=== PATIENT | male | born 1940 | race Caucasian/White ===

== ENCOUNTER 2016-12-11 10:01 | Emergency (ER) | payer OTHER, BC ==
[~2016-12-11] VITALS: Ht 175.3 cm; Wt 95.0 kg
[~2016-12-11 10:01] MED LIST: ALLOPURINOL100 MG PO; AMLODIPINE BESY10 MG PO; ATORVASTATIN CA40 MG PO; CALCITRIOL0.5 MCG PO; CALCIUM ACETAT667 M2 PO; CARVEDILOL6.25 MG PO; CLEOCIN300 MG PO; CLONIDINE HCL0.3 MG PO; COUMADIN3 MG PO; ENDOCET 5-3251 EACH PO; FUROSEMIDE40 MG PO; HYDRALAZINE HC100 MG PO; ISOSORBIDE MONO60 MG PO; LANTUS 3 M100 UNITS1 SC; LASIX40 MG PO; NOVOLOG PE100 UNITS/ SC; OMEPRAZOLE20 MG PO; PROTONIX40 MG PO; VOL-CARE RX TA1 EACH PO; WARFARIN SODIUM5 MG PO; WARFARIN SODIUM6 MG PO
[2016-12-11 12:30] LABS: BASOPHIL COUNT 0.1 K/uL (0-0.1); EOSINOPHIL (%) 1.6 % (0-5); EOSINOPHIL COUNT 0.2 K/uL (0-0.3); HEMATOCRIT 32.2 % (38.0-50.0); IMMATURE GRANULOCYTE (%) 0.5 % (0.0-0.7); IMMATURE GRANULOCYTE COUNT 0.1 K/uL; INSTRUMENT ABS NEUTROPHIL CT 8.8 K/uL; LYMPHOCYTE COUNT 1.1 K/uL (1.0-2.8); MCH 29.9 PG (29.0-34.0); MCHC 31.4 G/DL (30.0-36.0); MCV 95.3 FL (86-99); MEAN PLAT.VOLUME 10.6 uM^3 (9.0-12.4); MONOCYTE (%) 8.3 % (3-12); MONOCYTE COUNT 0.9 K/uL (0-0.8); NEUTROPHIL (%) 79.2 % (45-76); NEUTROPHIL COUNT 8.8 K/uL (1.8-6.4); PLATELET COUNT 149 K/uL (156-360); RBC DIS.WIDTH-CV 17.2 % (11.8-14.6); RBC DIS.WIDTH-SD 59.7 % (39-53); RED BLOOD COUNT 3.38 M/uL (4.00-5.50); WHITE BLOOD COUNT 11.1 K/uL (4.1-10.2)
[2016-12-11 12:36] LABS: INTER. NORMALIZED RATIO 1.3; PROTHROMBIN TIME 13.1 (9.2-11.2)
[2016-12-11 12:41] LABS: CHLORIDE 105 mEq/L (99-109); SODIUM 143 mEq/L (136-147)
[2016-12-11 12:42] LABS: GLUCOSE 46 mg/dL (70-99)
[2016-12-11 12:44] LABS: ANION GAP 12 MEQ/L (2-14)
[2016-12-11 12:46] LABS: GFR ESTIMATE (CALCULATED) 16 mL/min/
[2016-12-11 12:47] LABS: UREA NITROGEN (BUN) 45 mg/dL (9-23)
[2016-12-11 14:13] LABS: POINT-OF-CARE METER ID UU13113702
[2016-12-11] MEDS ORDERED: CLEOCIN300 MG PO (14:38)
[2016-12-11 15:12] LABS: POINT-OF-CARE METER ID UU13113702
[2016-12-11 15:14] VITALS: BP 183/69
[2016-12-12] MEDS ORDERED: COUMADIN4 MG PO (18:11)
[2016-12-12] MEDS ORDERED: COUMADIN3 MG PO (18:11)
[2016-12-12] MEDS ORDERED: SENSIPAR30 MG PO (18:17)
[2016-12-12] MEDS ORDERED: PROTONIX40 MG PO (18:18)
[2016-12-12] MEDS ORDERED: XALATAN2.5 ML BOTH EYES (18:18)
== END 2016-12-11 15:33 | disposition home or self-care (01) ==
LOC: EME 10:01
PROVIDERS: Emergency Medicine
DX: L03.116 Cellulitis of left lower limb (principal); I73.9 Peripheral vascular disease, unspecified; E11.22 Type 2 diabetes mellitus with diabetic chronic kidney disease; I12.0 Hypertensive chronic kidney disease with stage 5 chronic kidney disease or end stage renal disease; N18.6 End stage renal disease; Z79.4 Long term (current) use of insulin; Z99.2 Dependence on renal dialysis; Z89.422 Acquired absence of other left toe(s); Z79.01 Long term (current) use of anticoagulants; Z87.891 Personal history of nicotine dependence
CPT/HCPCS: 73725; 80048; 82948; 85025; 85610; 99281; 99285

== ENCOUNTER 2016-12-12 11:23 | Inpatient (IN) | payer OTHER, BC ==
[~2016-12-12] VITALS: Ht 177.8 cm; Wt 89.7 kg
[2016-12-12 12:03] LABS: HEMATOCRIT 33.9 % (38.0-50.0); MCH 29.6 PG (29.0-34.0); MCHC 30.7 G/DL (30.0-36.0); MCV 96.6 FL (86-99); PLATELET COUNT 140 K/uL (156-360); RBC DIS.WIDTH-CV 17.1 % (11.8-14.6); RED BLOOD COUNT 3.51 M/uL (4.00-5.50); WHITE BLOOD COUNT 10.1 K/uL (4.1-10.2)
[2016-12-12 12:14] LABS: CHLORIDE 102 mEq/L (99-109); POTASSIUM 4.1 mEq/L (3.7-5.4); SODIUM 138 mEq/L (136-147)
[2016-12-12 12:17] LABS: ANION GAP 11 MEQ/L (2-14)
[2016-12-12 12:18] LABS: GLUCOSE 93 mg/dL (70-99)
[2016-12-12 12:20] LABS: GFR ESTIMATE (CALCULATED) 12 mL/min/
[2016-12-12 12:21] LABS: UREA NITROGEN (BUN) 60 mg/dL (9-23)
[2016-12-12] MEDS ORDERED: COUMADIN3 MG PO (18:11)
[2016-12-12] MEDS ORDERED: COUMADIN4 MG PO (18:11)
[2016-12-12] MEDS ORDERED: SENSIPAR30 MG PO (18:17)
[2016-12-12] MEDS ORDERED: XALATAN2.5 ML BOTH EYES (18:18)
[2016-12-12] MEDS ORDERED: PROTONIX40 MG PO (18:18)
[2016-12-13 00:23] VITALS: BP 175/72
[2016-12-13 04:01] VITALS: BP 176/74
[2016-12-13 06:56] LABS: HEMATOCRIT 33.3 % (38.0-50.0); MCH 29.3 PG (29.0-34.0); MCHC 30.3 G/DL (30.0-36.0); MCV 96.5 FL (86-99); MEAN PLAT.VOLUME 10.5 uM^3 (9.0-12.4); PLATELET COUNT 110 K/uL (156-360); RBC DIS.WIDTH-CV 16.9 % (11.8-14.6); RBC DIS.WIDTH-SD 60.1 % (39-53); RED BLOOD COUNT 3.45 M/uL (4.00-5.50); WHITE BLOOD COUNT 8.8 K/uL (4.1-10.2)
[2016-12-13 07:23] LABS: ANION GAP 11 MEQ/L (2-14); CHLORIDE 102 MEQ/L (99-109); GFR ESTIMATE (CALCULATED) 17 mL/min/; GLUCOSE 108 mg/dL (70-99); POTASSIUM 4.2 MEQ/L (3.7-5.4); SAMPLE HEMOLYSIS CHECK 0; SAMPLE ICTERIC CHECK 0; SAMPLE LIPEMIA CHECK 0; SODIUM 142 MEQ/L (136-147); UREA NITROGEN (BUN) 42 mg/dL (9-23)
[2016-12-13 07:30] VITALS: BP 168/84
[2016-12-13 10:01] LABS: METH RESISTANT S AUREUS PCR POSITIVE (NEGATIVE); PROBE CHECK PASS; SPECIMEN PROCESSING CONTROL PASS
[2016-12-13 10:14] LABS: AHBS INDEX 772.73; HBSG INDEX 0.19
[2016-12-13 10:15] LABS: HEPATITIS B SURFACE ANTIBODY REACTIVE
[2016-12-13 10:59] LABS: POINT-OF-CARE METER ID UU13113819
[2016-12-13 12:45] VITALS: BP 164/80
[2016-12-13 16:30] VITALS: BP 149/65
[2016-12-13 19:56] VITALS: BP 150/74
[2016-12-13 21:39] LABS: POINT-OF-CARE METER ID UU14162508
[2016-12-14 00:26] VITALS: BP 157/65
[2016-12-14 03:16] VITALS: BP 168/78
[2016-12-14 06:40] LABS: POINT-OF-CARE METER ID UU14162508
[2016-12-14 07:03] LABS: POINT-OF-CARE METER ID UU14162508
[2016-12-14 08:15] VITALS: BP 190/76
[2016-12-14 09:25] LABS: MCH 29.5 PG (29.0-34.0); MCHC 30.7 G/DL (30.0-36.0); MCV 96.2 FL (86-99); MEAN PLAT.VOLUME 10.6 uM^3 (9.0-12.4); PLATELET COUNT 120 K/uL (156-360); RBC DIS.WIDTH-CV 16.6 % (11.8-14.6); RBC DIS.WIDTH-SD 58.8 % (39-53); RED BLOOD COUNT 3.12 M/uL (4.00-5.50); WHITE BLOOD COUNT 9.9 K/uL (4.1-10.2)
[2016-12-14 09:57] LABS: ANION GAP 12 MEQ/L (2-14); CHLORIDE 103 MEQ/L (99-109); GFR ESTIMATE (CALCULATED) 13 mL/min/; GLUCOSE 110 mg/dL (70-99); POTASSIUM 4.5 MEQ/L (3.7-5.4); SAMPLE HEMOLYSIS CHECK 0; SAMPLE ICTERIC CHECK 0; SAMPLE LIPEMIA CHECK 0; SODIUM 140 MEQ/L (136-147); UREA NITROGEN (BUN) 53 mg/dL (9-23)
[2016-12-14 14:09] LABS: POINT-OF-CARE METER ID UU14162508
[2016-12-14 15:25] VITALS: BP 152/76
[2016-12-14 17:33] LABS: POINT-OF-CARE METER ID UU14162508
[2016-12-14 23:30] LABS: C DIFF TOXIN NEGATIVE (NEGATIVE)
[2016-12-14 23:32] LABS: PROBE CHECK PASS; SPECIMEN PROCESSING CONTROL PASS
[2016-12-15 00:12] VITALS: BP 130/51
[2016-12-15 03:21] VITALS: BP 111/48
[2016-12-15 07:41] VITALS: BP 120/54
[2016-12-15 12:35] VITALS: BP 124/60
[2016-12-15 15:36] VITALS: BP 120/54
[2016-12-15 21:55] LABS: POINT-OF-CARE METER ID UU14162508
[2016-12-15 23:45] VITALS: BP 111/59
[2016-12-16 06:46] LABS: EOSINOPHIL (%) 2.6 % (0-5); EOSINOPHIL COUNT 0.2 K/uL (0-0.3); HEMATOCRIT 29.1 % (38.0-50.0); IMMATURE GRANULOCYTE (%) 0.7 % (0.0-0.7); IMMATURE GRANULOCYTE COUNT 0.1 K/uL; INSTRUMENT ABS NEUTROPHIL CT 6.3 K/uL; MCHC 30.9 G/DL (30.0-36.0); MEAN PLAT.VOLUME 11.4 uM^3 (9.0-12.4); MONOCYTE (%) 10.4 % (3-12); MONOCYTE COUNT 0.9 K/uL (0-0.8); NEUTROPHIL (%) 74.3 % (45-76); NEUTROPHIL COUNT 6.3 K/uL (1.8-6.4); PLATELET COUNT 109 K/uL (156-360); RBC DIS.WIDTH-CV 16.4 % (11.8-14.6); RBC DIS.WIDTH-SD 58.9 % (39-53); WHITE BLOOD COUNT 8.5 K/uL (4.1-10.2)
[2016-12-16 07:14] LABS: ANION GAP 12 MEQ/L (2-14); CHLORIDE 103 MEQ/L (99-109); GFR ESTIMATE (CALCULATED) 11 mL/min/; GLUCOSE 135 mg/dL (70-99); SAMPLE HEMOLYSIS CHECK 0; SAMPLE ICTERIC CHECK 0; SAMPLE LIPEMIA CHECK 0; SODIUM 139 MEQ/L (136-147); UREA NITROGEN (BUN) 38 mg/dL (9-23)
[2016-12-16 07:16] LABS: VANCOMYCIN, TROUGH 18.4 MCG/ML (10-20)
[2016-12-16 12:55] VITALS: BP 117/56
[2016-12-16 13:02] LABS: POINT-OF-CARE METER ID UU14162508
[2016-12-16 16:45] VITALS: BP 116/43
[2016-12-16 21:00] VITALS: BP 166/72
[2016-12-16 23:17] VITALS: BP 121/63
[2016-12-17 01:19] LABS: INTER. NORMALIZED RATIO 1.3; PROTHROMBIN TIME 12.8 (9.2-11.2)
[2016-12-17 06:51] LABS: POINT-OF-CARE METER ID UU14162508
[2016-12-17 08:30] VITALS: BP 134/62
[2016-12-17 11:45] LABS: INTER. NORMALIZED RATIO 1.2; PROTHROMBIN TIME 12.3 (9.2-11.2)
[2016-12-17 15:35] VITALS: BP 162/74
[2016-12-17 21:56] LABS: POINT-OF-CARE METER ID UU14162508
[2016-12-18] VITALS (7 sets, daily range): BP systolic 122–180; BP diastolic 60–90
[2016-12-18 06:38] LABS: POINT-OF-CARE METER ID UU14162508
[2016-12-18 07:14] LABS: INTER. NORMALIZED RATIO 1.2; PROTHROMBIN TIME 12.1 (9.2-11.2)
[2016-12-19 03:10] VITALS: BP 177/72
[2016-12-19 06:29] LABS: POINT-OF-CARE METER ID UU14162508
[2016-12-19 07:34] LABS: BASOPHIL COUNT 0.1 K/uL (0-0.1); EOSINOPHIL (%) 2.9 % (0-5); EOSINOPHIL COUNT 0.3 K/uL (0-0.3); HEMATOCRIT 31.5 % (38.0-50.0); IMMATURE GRANULOCYTE (%) 0.5 % (0.0-0.7); IMMATURE GRANULOCYTE COUNT 0.1 K/uL; INSTRUMENT ABS NEUTROPHIL CT 7.8 K/uL; LYMPHOCYTE COUNT 1.3 K/uL (1.0-2.8); MCH 29.1 PG (29.0-34.0); MCHC 29.8 G/DL (30.0-36.0); MCV 97.5 FL (86-99); MEAN PLAT.VOLUME 10.7 uM^3 (9.0-12.4); MONOCYTE (%) 9.8 % (3-12); NEUTROPHIL (%) 74.1 % (45-76); NEUTROPHIL COUNT 7.8 K/uL (1.8-6.4); RBC DIS.WIDTH-CV 16.3 % (11.8-14.6); RBC DIS.WIDTH-SD 58.2 % (39-53); RED BLOOD COUNT 3.23 M/uL (4.00-5.50); WHITE BLOOD COUNT 10.5 K/uL (4.1-10.2)
[2016-12-19 07:36] LABS: PLATELET COUNT 166 K/uL (156-360)
[2016-12-19 07:50] LABS: INTER. NORMALIZED RATIO 1.3; PROTHROMBIN TIME 13.1 (9.2-11.2)
[2016-12-19 07:55] LABS: ANION GAP 14 MEQ/L (2-14); CHLORIDE 104 MEQ/L (99-109); GFR ESTIMATE (CALCULATED) 10 mL/min/; GLUCOSE 125 mg/dL (70-99); POTASSIUM 4.5 MEQ/L (3.7-5.4); SAMPLE HEMOLYSIS CHECK 0; SAMPLE ICTERIC CHECK 0; SAMPLE LIPEMIA CHECK 0; SODIUM 140 MEQ/L (136-147); UREA NITROGEN (BUN) 40 mg/dL (9-23); VANCOMYCIN, TROUGH 16.5 MCG/ML (10-20)
[2016-12-19 12:35] LABS: POINT-OF-CARE METER ID UU14162508
[2016-12-19 15:48] VITALS: BP 181/73
[2016-12-19 17:06] LABS: POINT-OF-CARE METER ID UU14162508
[2016-12-19 23:35] VITALS: BP 120/70
[2016-12-20 07:40] LABS: INTER. NORMALIZED RATIO 1.3; PROTHROMBIN TIME 13.1 (9.2-11.2)
[2016-12-20 08:36] VITALS: BP 188/78
[2016-12-20] MEDS ORDERED: BACTRIM,SEPT1 TABLET PO (11:57)
[2016-12-20 15:15] VITALS: BP 155/71
[2016-12-21 00:02] VITALS: BP 128/52
[2016-12-21 07:05] LABS: INTER. NORMALIZED RATIO 1.3; PROTHROMBIN TIME 13.2 (9.2-11.2)
[2016-12-21 08:00] VITALS: BP 161/73
[2016-12-21 08:03] LABS: BASOPHIL COUNT 0.1 K/uL (0-0.1); EOSINOPHIL (%) 3.1 % (0-5); EOSINOPHIL COUNT 0.3 K/uL (0-0.3); HEMATOCRIT 28.6 % (38.0-50.0); IMMATURE GRANULOCYTE (%) 0.6 % (0.0-0.7); IMMATURE GRANULOCYTE COUNT 0.1 K/uL; INSTRUMENT ABS NEUTROPHIL CT 6.8 K/uL; LYMPHOCYTE COUNT 1.2 K/uL (1.0-2.8); MCH 30.1 PG (29.0-34.0); MCHC 31.5 G/DL (30.0-36.0); MCV 95.7 FL (86-99); MEAN PLAT.VOLUME 10.4 uM^3 (9.0-12.4); MONOCYTE (%) 9.2 % (3-12); MONOCYTE COUNT 0.9 K/uL (0-0.8); NEUTROPHIL (%) 73.7 % (45-76); NEUTROPHIL COUNT 6.8 K/uL (1.8-6.4); PLATELET COUNT 130 K/uL (156-360); RBC DIS.WIDTH-CV 16.4 % (11.8-14.6); RBC DIS.WIDTH-SD 57.6 % (39-53); RED BLOOD COUNT 2.99 M/uL (4.00-5.50); WHITE BLOOD COUNT 9.3 K/uL (4.1-10.2)
[2016-12-21 08:09] LABS: ANION GAP 12 MEQ/L (2-14); CHLORIDE 102 MEQ/L (99-109); POTASSIUM 4.2 MEQ/L (3.7-5.4); SAMPLE HEMOLYSIS CHECK 0; SAMPLE ICTERIC CHECK 0; SAMPLE LIPEMIA CHECK 0; SODIUM 138 MEQ/L (136-147)
[2016-12-21 08:15] LABS: GFR ESTIMATE (CALCULATED) 12 mL/min/; GLUCOSE 132 mg/dL (70-99); UREA NITROGEN (BUN) 31 mg/dL (9-23)
[2016-12-21 12:23] VITALS: BP 171/76
[2016-12-21 15:00] VITALS: BP 144/61
[2016-12-22 00:15] VITALS: BP 118/65
[2016-12-22 06:26] LABS: POINT-OF-CARE METER ID UU14162508
[2016-12-22 07:12] LABS: INTER. NORMALIZED RATIO 1.4
[2016-12-22 07:15] VITALS: BP 150/65
[2016-12-22] MEDS ORDERED: LEVEMIR100 UNIT/2 SC (10:46)
[2016-12-22] MEDS ORDERED: NEPHRO-VITE,1 TABLET PO (10:47)
[2016-12-22] MEDS ORDERED: RENVELA800 MG PO (10:47)
[2016-12-22] MEDS ORDERED: NIFEDIPINE ER90 MG PO (10:48)
[2016-12-22] MEDS ORDERED: CARVEDILOL12.5 MG PO (10:48)
[2016-12-22 11:20] VITALS: BP 139/61
== END 2016-12-22 14:20 | DRG 252 ==
LOC: EME 11:23 → EDOF 14:00 → 2EAST 14:00
PROVIDERS: Emergency Medicine; Internal Medicine Nephrology; Student in an Organized Health Care Education/Training Program; Surgery
PROC: 5A1D60Z (ICD-10-PCS; principal; 2016-12-12)
PROC: 047N3ZZ Dilation of Left Popliteal Artery, Percutaneous Approach (ICD-10-PCS; 2016-12-13)
DX: E11.51 Type 2 diabetes mellitus with diabetic peripheral angiopathy without gangrene (principal); I13.2 Hypertensive heart and chronic kidney disease with heart failure and with stage 5 chronic kidney disease, or end stage renal disease; E11.22 Type 2 diabetes mellitus with diabetic chronic kidney disease; L03.115 Cellulitis of right lower limb; E11.621 Type 2 diabetes mellitus with foot ulcer; E11.628 Type 2 diabetes mellitus with other skin complications; D63.1 Anemia in chronic kidney disease; N18.6 End stage renal disease; E11.622 Type 2 diabetes mellitus with other skin ulcer; E66.9 Obesity, unspecified; E87.70 Fluid overload, unspecified; I50.9 Heart failure, unspecified; Z99.2 Dependence on renal dialysis; L97.521 Non-pressure chronic ulcer of other part of left foot limited to breakdown of skin; L97.821 Non-pressure chronic ulcer of other part of left lower leg limited to breakdown of skin; L03.116 Cellulitis of left lower limb; Z68.28 Body mass index [BMI] 28.0-28.9, adult; Z79.4 Long term (current) use of insulin; Z89.421 Acquired absence of other right toe(s); Z89.432 Acquired absence of left foot; Z86.14 Personal history of Methicillin resistant Staphylococcus aureus infection
CPT/HCPCS: 71010; 73725; 80048; 80069; 80202; 82948; 85025; 85027; 85610; 86706; 87040; 87340; 87493; 87641; 93005; 94760; 94799; 97530 GO; 99281; 99285; C1725; C1760; C1769; C1894; J0881; J1644; J1815; J2250; J2270; J2543; J3010; J3370; J7050; S0020